=== PATIENT | female | born 1975 | race Two or more races ===

== ENCOUNTER 2024-04-10 11:18 | Emergency (ER) | payer MEDICAID, SELFPAY ==
[2024-04-10 11:27] VITALS: BP 182/117; PULSE 80; RESP 18; TEMP 36.9; O2SAT 100; BMI 36.5
--- NOTE | 2024-04-10 11:32 | XR_ITS ---
Examination: CT abdomen and pelvis without contrast. Coronal 3-D reconstructions. Sagittal 2-D reconstructions. Date and time of exam:April 10 2024 to 32 hours Comparison March 12, 2008 INDICATIONS: Onset generalized abdominal pain today CTDI: vol (mGy): 13.4 DLP: (mGycm): 749 Technique: Axial images of the abdomen have been obtained, 3 mm slice thickness Intravenous contrast material has not been administered. Low dose protocols were performed. One or more of the following dose reduction techniques were used; automated exposure control, adjustment of the mA and/or KV according to patient size, use of iterative reconstruction technique. Findings: No focal liver or splenic lesion Gastric sutures Absent gallbladder No pancreatic or adrenal mass No renal or ureteral calculi, no hydronephrosis No pericecal inflammatory change No bowel obstruction or diverticulitis Anteverted uterus No adnexal mass Urinary bladder intact Osseous structures intact IMPRESSION: No renal or ureteral calculi, no hydronephrosis No CT findings of appendicitis bowel obstruction or diverticulitis
--- NOTE | 2024-04-10 11:32 | EDRME_ITS ---
Rapid Medical Screening Exam [facility] [place] Arrival date/time: 04/10/24 11:18 48-year-old female with a history of a gastric sleeve, cholecystectomy and hypertension presents to the emergency room with a chief complaint of 8 out of 10 epigastric pain and tenderness. Patient states she has had nausea and vomiting x 2 days. Patient states that she is on the Wegovy medication for diabetes and recently started taking it again and a higher dose after being off of it for months. I have greeted and performed a focused initial assessment of this patient. A comprehensive ED assessment and evaluation of the patient, analysis of all test results, and completion of the medical decision making process will be conducted by additional ED providers. Chief Complaint: Nausea/Vomiting/Diarrhea Vital signs: Vital Signs Temperature 98.4 F 04/10/24 11:27 Pulse Rate 80 04/10/24 11:27 Respiratory Rate 18 04/10/24 11:27 Blood Pressure 182/117 H 04/10/24 11:27 Pulse Oximetry (%) 100 04/10/24 11:27 Oxygen Delivery Method Room Air 04/10/24 11:27 Vital signs reviewed by provider: Yes
[2024-04-10 11:56] LABS: Collection Type, Urine Clean Catch
[2024-04-10 12:12] LABS: HCG Qualitative,Urine Negative
[2024-04-10 12:13] LABS: Amorphous Crystals,Urine Present (Absent); Bilirubin,Urine Negative (Negative); Blood,Urine Negative (Negative); Color,Urine Lt-Yellow (Lt Yel-Yel); Glucose, Urine Negative (Negative); Ketones,Urine 1+ (Negative); Leukocyte Esterase,Urine Negative (Negative); Nitrite,Urine Negative (Negative); PH,Urine 7.5 (5.0-7.0); Protein,Urine 2+ (Neg - Trace); RBC,Urine 3 /hpf (0-3); Specific Gravity,Urine 1.022 (1.001-1.035); Squamous Epithelial Cell,Urine 1 /hpf (0-5); Urobilinogen,Urine Negative mg/dL (0.0-1.0); WBC,Urine 2 /hpf (0-5)
[2024-04-10 12:18] LABS: Clarity,Urine Hazy (Clear/Hazy)
[2024-04-10 12:29] LABS: Basophils % (Auto) 0 % (0-2.5); Eosinophils % (Auto) 0 % (0-10); Hematocrit 39.1 % (36.0-46.0); Hemoglobin 12.5 g/dL (12.0-16.0); Immature Granulocytes % (Auto) 1 % (0-0); Immature Granulocytes Auto 0.05 Thou/mm3 (0.00-0.00); Lymphocytes # (Auto) 1.2 Thou/mm3 (1.0-4.8); Lymphocytes % (Auto) 13 % (10-50); Mean Corpuscular Hemoglobin 24.8 pg (25.0-35.0); Mean Corpuscular Volume 78 fL (80-100); Monocytes # (Auto) 0.4 Thou/mm3 (0.0-0.8); Monocytes % (Auto) 4 % (0-12); Neutrophils # (Auto) 7.7 Thou/mm3 (1.8-7.7); Neutrophils % (Auto) 82 % (37-80); Nucleated Red Blood Cell % 0 /100 WBC (0); Platelet Count 216 Thou/mm3 (140-440); RDW Standard Deviation 47.3 fL (36.4-46.3); Red Blood Count 5.04 Miln/mm3 (4.00-5.20); White Blood Count 9.3 Thou/mm3 (3.6-11.0)
[2024-04-10] MEDS: METOCLOPRAMIDE LIQD 10 MG/10 ML UDC PO (12:29)
[2024-04-10 12:48] LABS: Alanine Aminotransferase 31 U/L (10-49); Albumin, Serum 5.5 gm/dL (3.5-5.0); Albumin/Globulin Ratio 1.8 (1.2-2.2); Alkaline Phosphatase 99 U/L (46-116); Anion Gap 10 (7-16); Aspartate Amino Transferase 28 U/L (0-34); BUN/Creatinine Ratio 19 Ratio (12-20); Bilirubin,Total 0.6 mg/dL (0.3-1.2); Blood Urea Nitrogen 13 mg/dL (9-23); Calcium 10.2 mg/dL (8.3-10.6); Calcium (Corrected) 10.2 mg/dL (8.5-10.1); Carbon Dioxide 26.6 mMol/L (20.0-31.0); Chloride 100 mMol/L (98-107); Creatinine (Component) 0.7 mg/dL (0.6-1.3); Glucose 118 mg/dL (74-106); Lipase 34 U/L (12-53); Osmolality,Calculated 274 (275-295); Potassium 4.2 mMol/L (3.4-5.1); Sodium 137 mMol/L (136-145); Total Protein 8.5 gm/dL (5.7-8.2); eGFR > 60 See Note
[2024-04-10 12:58] VITALS: BP 182/117; PULSE 80
[2024-04-10] MEDS: cloNIDine HCL 0.1 MG TABLET PO (12:58)
[2024-04-10] MEDS: MG HYD/AL HYD/SIME (Maalox Reg) SUSP 30 ML UDC PO (12:59)
--- NOTE | 2024-04-10 13:42 | EDNOTE_ITS ---
Nausea/Vomit./Diarrhea-RME/HPI General Chief complaint: Nausea/Vomiting/Diarrhea Stated complaint: n/v/d, i think i'm having reac. to wt loss shot Arrival date/time: 04/10/24 11:18 RME / HPI RME / HPI Narrative: 04/10/24 11:18 48-year-old female with a history of a gastric sleeve, cholecystectomy and hypertension presents to the emergency room with a chief complaint of 8 out of 10 epigastric pain and tenderness. Patient states she has had nausea and vomiting x 2 days. Patient states that she is on the Wegovy medication for diabetes and recently started taking it again and a higher dose after being off of it for months. I have greeted and performed a focused initial assessment of this patient. A comprehensive ED assessment and evaluation of the patient, analysis of all test results, and completion of the medical decision making process will be conducted by additional ED providers. This section includes all my notes and documentations, including HPI, PE, and ED course.? Ayan Oreilly MD HPI: 48-year-old female here with 12 to 24-hour history of vomiting and diarrhea and abdominal pain. No fever. No urinary symptoms. No other complaints. ROS: All negative except as documented in HPI. Physical Exam: General:? Alert and oriented.? No acute distress when remaining still.?? Eyes:? Conjunctivae and lids clear.? ENT:? No nasal congestion.? Neck:? Supple.? Heart:? RRR.? Lungs:? No respiratory distress.? Good air movement.? No rhonchi, wheezing, rales.?? Abdomen:? Soft and nontender.?? Legs:? No clubbing, cyanosis, edema.? Skin:? Warm and dry.?? Neuro:? Alert and oriented X 3.?? I reviewed all diagnostic test results. My review of the abdominal CT report is?no acute findings. Blood tests and urine tests?unremarkable. At this point, diagnoses include?gastroenteritis. Recommended supportive care. Based on my best medical judgment, made decision no further evaluation or treatment indicated at this time.? Patient understands and agrees to the discharge instructions customized and printed, see below. Discharge Instructions from Dr. Oreilly: 1. After evaluation, you have stomach flu.? See attached handout on gastroenteritis. 2. This is caused by virus germs.? And we do not have good medications to kill the virus germs.? But your immune system will fight it off. 3. Your job is to stay hydrated. ?Reglan for nausea/vomiting.? Increase oral fluid and maintain clear urine.? If dark or yellow, increase oral fluid. 4. Do not take any medications to stop your diarrhea.? But try to replenish the fluid and electrolytes you are losing. 5. Some good choices are water (but not only water because it will cause electrolyte abnormalities), sports drinks like Gatorade (with less sugar content), coconut water, chicken stock, and other fluid with electrolytes (like Pedialyte). 6. See your private doctor on 04/13/2024 if not completely better. 7. Seek immediate medical care with worsening or with any concerns. Ayan Oreilly MD Related Data Home Medications ?Medication ?Instructions ?Recorded ?Confirmed Hydrocodone/Acetaminophen (NORCO 1 tab PO Q4-6HRPRN PRN PAIN #0 tabs 03/14/13 10/325) Tramadol Hcl 1 tab PO PRN PAIN ##0 03/14/13 carisoprodol 350 mg tablet 1 tab PO [id number] PRN PAIN ##0 03/14/13 clonazepam 1 mg tablet 1 tab PO BID ##0 03/14/13 omeprazole 40 mg capsule,delayed 40 mg PO QDAY #0 mg 03/14/13 release (Prilosec) Previous Rx's ?Medication ?Instructions ?Recorded Codeine/Promethazine Hcl Syrup 2 tsp PO QIDPRN PRN cough ##180 03/14/13 (Phenergan w/Codeine Syrup) xanax 0.25mg 1 tab PO tid/prn anxiety #10 tabs 07/07/14 bacitracin 500 unit/gram topical 1 applicatio topical Q8H #30 grams 12/16/17 ointment clindamycin HCl 300 mg capsule 300 mg PO TID #15 caps 12/16/17 metoclopramide HCl 10 mg tablet 10 mg PO Q6H PRN nausea and 04/10/24 (Reglan) vomiting #20 tabs Allergies Allergy/AdvReac Type Severity Reaction Status Date / Time codeine Allergy Severe Hives Verified 04/10/24 11:22 ibuprofen Allergy Severe Hives Verified 04/10/24 11:22 sertraline [From Zoloft] Allergy Severe Hives Verified 04/10/24 11:22 topiramate Allergy Severe HIVE Verified 04/10/24 11:22 ondansetron [From Zofran] Allergy Intermediate Rash Verified 04/10/24 12:18 TRAZADONE Allergy Intermediate Hives Uncoded 04/10/24 11:22 Review of Systems Review of Systems Systems Reviewed: All systems reviewed, normal except as documented Past Medical History Past Medical History CARDIAC: Negative Congestive Heart Failure RESPIRATORY: Negative Chronic Obstructive Pulmonary Disease (COPD) GENITOURINARY: Negative Renal Disease ENDOCRINE: Negative Diabetes Mellitus Type 1 or Diabetes Mellitus Type 2 Social History SMOKING STATUS: Never smoker ED Exam Narrative Physical exam: As noted in HPI Course Quality Measures none Orders Category Date Time Status CT abdomen pelvis wo con Stat Exams 04/10/24 11:32 Completed CBC Stat Lab 04/10/24 11:52 Completed CMP [Comprehensive Metabolic Panel] Stat Lab 04/10/24 11:52 Completed HCG Qualitative,Urine Stat Lab 04/10/24 11:50 Completed Lipase Stat Lab 04/10/24 11:52 Completed UA [Urinalysis] Stat Lab 04/10/24 11:50 Completed Urine Culture Stat Lab 04/10/24 11:50 Received ACETAMINOPHEN w/COD 300-30 [Tylenol w/Cod #3] Med 04/10/24 12:23 Discontinued 2 tab PO X1 ONE Metoclopramide [Reglan] Med 04/10/24 12:23 Discontinued 10 mg PO X1 ONE Ondansetron Odt [Zofran Odt] Med 04/10/24 11:32 Discontinued 4 mg PO X1 ONE cloNIDine HCL [Catapres] Med 04/10/24 11:32 Discontinued 0.1 mg PO X1 ONE mg Hyd/Al Hyd/Marian Susp [Maalox Susp] Med 04/10/24 11:32 Discontinued 30 ml PO X1 ONE mg Hyd/Al Hyd/Marian Susp [Maalox Susp] Med 04/10/24 12:32 Discontinued 30 ml PO X1 ONE mg Hyd/Al Hyd/Marian Susp [Maalox Susp] Med 04/10/24 12:33 Discontinued 30 ml PO X1 ONE Vital Signs Vital signs: Vital Signs Temperature 98.4 F 04/10/24 11:27 Pulse Rate 80 04/10/24 11:27 Respiratory Rate 18 04/10/24 11:27 Blood Pressure 182/117 H 04/10/24 11:27 Pulse Oximetry (%) 100 04/10/24 11:27 Oxygen Delivery Method Room Air 04/10/24 11:27 Pulse ox is 100% on room air which is adequate. Nausea/Vomiting/Diarrhea Patient data External records reviewed:: [facility] previous records (I reviewed ED visit on 06/01/2018 ) Clinical information provided by:: patient Social determinants that could affect healthcare access:: none Patient has the following chronic illnesses:: None How is presenting disease/condition affected by chronic disease/condition?: no chronic disease Evaluation data The following diagnostics were reviewed and interpreted by me:: lab results and radiology exam(s) Lab and/or radiology exams considered but not ordered:: None Interpretation Summary: Gastroenteritis Medications / Prescriptions Medications / Prescriptions considered but not ordered:: None Medication administrations:: Medication Administration History Discontinued Medications Acetaminophen/Codeine Phosphate (Acetaminophen W/Cod 300-30 Tablet) 2 tab PO X1 ONE Stop: 04/10/24 12:24 Last Admin: 04/10/24 12:30 Dose: Not Given Documented By: QUIANA Non-Admin Reason: Patient Refused Al Hydrox/Mg Hydrox/Simethicone (Mg Hyd/Al Hyd/Marian (Maalox Reg) Susp 30 Ml Udc) 30 ml PO X1 ONE Stop: 04/10/24 11:33 Last Admin: 04/10/24 13:39 Dose: Not Given Documented By: OA Non-Admin Reason: Discontinued Al Hydrox/Mg Hydrox/Simethicone (Mg Hyd/Al Hyd/Marian (Maalox Reg) Susp 30 Ml Udc) 30 ml PO X1 ONE Stop: 04/10/24 12:33 Last Admin: 04/10/24 12:59 Dose: 30 ml Documented By: MP Al Hydrox/Mg Hydrox/Simethicone (Mg Hyd/Al Hyd/Marian (Maalox Reg) Susp 30 Ml Udc) 30 ml PO X1 ONE Stop: 04/10/24 12:34 Last Admin: 04/10/24 12:59 Dose: Not Given Documented By: MP Non-Admin Reason: Duplicate Medication on eMAR Clonidine (Clonidine Hcl 0.1 Mg Tablet) 0.1 mg PO X1 ONE Stop: 04/10/24 11:33 Last Admin: 04/10/24 12:58 Dose: 0.1 mg Documented By: DELORES Metoclopramide HCl (Metoclopramide Liqd 10 Mg/10 Ml Udc) 10 mg PO X1 ONE Stop: 04/10/24 12:24 Last Admin: 04/10/24 12:29 Dose: 10 mg Documented By: QUIANA Ondansetron HCl (Ondansetron Odt 4 Mg Tabrap) 4 mg PO X1 ONE; Protocol Stop: 04/10/24 11:33 Last Admin: 04/10/24 12:18 Dose: Not Given Documented By: QUIANA Non-Admin Reason: Patient Refused Reglan and Mylanta Consultations Consultation(s) initiated? (list below): No Diagnosis Nausea Differential Diagnosis: traveler's diarrhea, food poisoning, gastroenteritis, drug-induced nausea and vomiting and dehydration Most likely diagnosis given after review of the tests above:: Gastroenteritis Admission Indicated Admission indicated?: not indicated Explain why admission is indicated or not indicated:: Does not meet admission criteria Admission Request Was there a request for admission?: No Disposition Plan Disposition Plan: Discharge Discharge Attestation Discharge Attestation: The patient and all family members were given an opportunity to ask questions and understood the discharge instructions. Discharge instructions specifically effects, indications for sooner follow up or return to the emergency department, and the expected course of current diagnosis. Patient condition: Stable Discharge Plan Plan Patient Disposition: HOME (Self Care) Prescriptions/Referrals Prescriptions/Med Rec: New metoclopramide HCl [Reglan] 10 mg tablet 10 mg PO Q6H PRN (Reason: nausea and vomiting) Qty: 20 0RF No Action carisoprodol 350 MG tablet 1 tab PO [id number] PRN (Reason: PAIN) Qty: 0 clonazepam 1 MG tablet 1 tab PO BID Qty: 0 omeprazole [Prilosec] 40 MG capsule,delayed release(DR/EC) 40 mg PO QDAY Qty: 0 Patient Comments: TO SUPPRESS GASTRIC SECRETIONS Hydrocodone/Acetaminophen (NORCO 10/325) 1 TAB tablet 1 tab PO Q4-6HRPRN PRN (Reason: PAIN) Qty: 0 Tramadol Hcl 50 MG tablet 1 tab PO PRN (Reason: PAIN) Qty: 0 Codeine/Promethazine Hcl Syrup (Phenergan w/Codeine Syrup) 120 ML syrup 2 tsp PO QIDPRN PRN (Reason: cough) Qty: 180 0RF Rx Instructions: 5 ML = 10 MG CODEINE xanax 0.25mg 1 tab PO tid/prn anxiety Qty: 10 0RF clindamycin HCl 300 mg capsule 300 mg PO TID Qty: 15 0RF bacitracin 500 unit/gram ointment 1 applicatio TOPICAL Q8H Qty: 30 0RF Referrals: Precious Lancaster PA-C [Primary Care Provider] - In 1 week Problem List Clinical Impression: Stomach flu Patient/Caregiver Discharge Instructions Discharge Activity: activity as tolerated Education Materials: ED Gastroenteritis, Viral (Adult) Additional Instructions: Discharge Instructions from Dr. Oreilly: 1. After evaluation, you have stomach flu.? See attached handout on gastroenteritis. 2. This is caused by virus germs.? And we do not have good medications to kill the virus germs.? But your immune system will fight it off. 3. Your job is to stay hydrated. ?Reglan for nausea/vomiting.? Increase oral fluid and maintain clear urine.? If dark or yellow, increase oral fluid. 4. Do not take any medications to stop your diarrhea.? But try to replenish the fluid and electrolytes you are losing. 5. Some good choices are water (but not only water because it will cause electrolyte abnormalities), sports drinks like Gatorade (with less sugar content), coconut water, chicken stock, and other fluid with electrolytes (like Pedialyte). 6. See your private doctor on 04/13/2024 if not completely better. 7. Seek immediate medical care with worsening or with any concerns. Print Language: Finnish Stand Alone Forms: [place] Award Info., Work/School Release, Patient Portal Info Letter
== END 2024-04-10 14:52 | disposition home or self-care (01) ==
PROVIDERS: Nurse Practitioner Family; Emergency Provider Emergency Medicine; PCP Physician Assistant Medical
DX: A08.4 Viral intestinal infection, unspecified (principal); I10 Essential (primary) hypertension
CPT/HCPCS: 36415; 74176; 80053; 81001; 81025; 83690; 85025; 87086; 99284; A9270

== ENCOUNTER 2024-09-21 08:54 | Outpatient (AMB) | payer MEDICAID, SELFPAY ==
--- NOTE | 2024-09-21 09:06 | AMB.GYNCLNOT ---
Vital Signs 09/21/24 09:07 Height 1.55 m Height Method Stated Weight 90.775 kg Weight Measurement Method Standing Scale BMI 37.8 BP 125/86 H Blood Pressure Source Automatic Cuff Blood Pressure Location Left Upper Arm Position Sitting Respiration 18 Pulse 72 Pulse Source Monitor Temp 97.2 F Temp Source Oral Pulse Oximetry (%) 98 Oxygen Delivery Method Room Air Allergies/Home Meds Allergies & Medications Allergies codeine Allergy (Severe, Verified 09/21/24 09:08) Hives ibuprofen Allergy (Severe, Verified 09/21/24 09:08) Hives sertraline (From Zoloft) Allergy (Severe, Verified 09/21/24 09:08) Hives topiramate Allergy (Severe, Verified 09/21/24 09:08) HIVE ondansetron (From Zofran) Allergy (Intermediate, Verified 09/21/24 09:08) Rash TRAZADONE Allergy (Intermediate, Uncoded 09/21/24 09:08) Hives Medication Reconciliation Codeine/Promethazine Hcl Syrup (Phenergan w/Codeine Syrup) 2 tsp PO QIDPRN PRN cough ##180 03/14/13 [Rx Confirmed 09/21/24] Hydrocodone/Acetaminophen (NORCO 10/325) 1 tab PO Q4-6HRPRN PRN PAIN #0 tabs 03/14/13 [History Confirmed 09/21/24] Tramadol Hcl 1 tab PO PRN PAIN ##0 03/14/13 [History Confirmed 09/21/24] carisoprodol 350 mg tablet 1 tab PO [id number] PRN PAIN ##0 03/14/13 [History Confirmed 09/21/24] clonazepam 1 mg tablet 1 tab PO BID ##0 03/14/13 [History Confirmed 09/21/24] omeprazole 40 mg capsule,delayed release (Prilosec) 40 mg PO QDAY #0 mg 03/14/13 [History Confirmed 09/21/24] xanax 0.25mg 1 tab PO tid/prn anxiety #10 tabs 07/07/14 [Rx Confirmed 09/21/24] bacitracin 500 unit/gram topical ointment 1 applicatio topical Q8H #30 grams 12/16/17 [Rx Confirmed 09/21/24] clindamycin HCl 300 mg capsule 300 mg PO TID #15 caps 12/16/17 [Rx Confirmed 09/21/24] metoclopramide HCl 10 mg tablet (Reglan) 10 mg PO Q6H PRN nausea and vomiting #20 tabs 04/10/24 [Rx Confirmed 09/21/24] Intake Visit Data Collection New Patient or Established: Established Patient (seen at [facility] [place] within 3 years) Reason for Visit:: HYSTERECTOMY CONSULT Seen by Clinical Staff ONLY (RN/MA): No Quarry Boss Required: No Do You Feel Safe at Home: Yes Authorities Contacted: N/A PCP or OBGYN visit in last 3 months: Yes Date of Last PCP or OBGYN visit: 04/10/24 Hx Now: No Are you currently on any form of Control: No Last menstrual period: 04/04/24 Pain Present Currently: Yes Pain Scale Used: Perea-Kirby/Numerical Pain scale:: 0 Smoking Status Smoking Status: Never smoker Core Dropper history Core Dropper History Menstrual regularity: irregular Flow: heavy Monthly: No How many days does period last: 0 Age at menarche: 14 Menopausal: No Currently sexually active: No IMAGERY INTELLIGENCE: Past Medical History Past Medical History: No Hx Renal Disease, No Hx Diabetes Mellitus Type 1 and No Hx Diabetes Mellitus Type 2 Questionnaires Covid-19 Vaccine Questionnaire Has patient been vacinated for Covid-19 Have you been vacinated for Covid-19: Yes PHQ-9 PHQ-2 Over the last 2 weeks, how often have you been bothered by any of the following problems? 1. Little interest or pleasure in doing things: not at all 2. Feeling down, depressed, or hopeless: not at all Total score: 0 PHQ-9 3. Trouble falling or staying asleep, or sleeping too much: Not at all 4. Feeling tired or having little energy: Not at all 5. Poor appetite or overeating: Not at all 6. Feeling bad about yourself - or that you are a failure or have let yourself or your family down: Not at all 7. Trouble concentrating on things, such as reading the newspaper or watching television: Not at all 8. Moving or speaking so slowly that other people could have noticed? - Or the opposite - being so fidgety or restless that you have been moving around a lot more than usual: not at all 9. Thoughts that you would be better off or of hurting yourself in some way: Not at all Total score: 0 If you checked off any problems, how difficult have these problems made it for you to do your work, take care of things at home, or get along with other people?: not difficult at all Source: Developed by Drs. Michael Ozuna, Shannan Wong, Filiberto Dawson and colleagues, with an educational paige from [employer]. Depression screen completed yes Social History Living Situation History Marital Status: Single Lives With: Family Housing: House Tobacco History Smoking Status: Never smoker Second Hand Smoke Exposure: No Alcohol History Alcohol Intake: Never Domestic Abuse History Do You Feel Safe at Home: Yes History of Present Illness HPI Narrative Chief Complaint Irregular menses, dysmenorrhea, pelvic pain, bleeding History of Present Illness Sonal Izaguirre is a 48-year-old perimenopausal female presenting with complaints of irregular menses, dysmenorrhea, pelvic pain, and bleeding. She has a history of type 2 diabetes mellitus, primary hypertension, migraine with aura, menorrhagia, and anemia. The patient has been experiencing irregular menstrual cycles and painful periods. A pelvic ultrasound revealed a 9 cm uterus with multiple fibroids, the largest measuring 4 cm and 2.7 cm, as well as a simple ovarian cyst. She has previously tried oral contraceptives to manage her symptoms. Due to the persistent nature of her condition, she was being worked up for a hysterectomy. As part of her treatment plan, Ms. Izaguirre has received six injections of Lupron (leuprolide for depot). She experienced increased bleeding after the second injection, but her condition has since stabilized. An endometrial biopsy (EMB) was performed, showing weakly proliferative endometrium, negative for hyperplasia and malignancy. Ms. Izaguirre reports a significant improvement in her overall health following a gastric sleeve procedure approximately 5 years ago. She lost about 160 pounds, which led to the resolution of her diabetes, hypertension, and cholesterol issues. However, she continues to manage thyroid problems. The patient's symptoms have been impacting her daily life, necessitating surgical intervention. She is currently planning to return to work on November 15 and is hoping to complete the surgery and recovery before that date. Obstetric History - GTPAL: G1 T1 L1 - history: - One previous resulting in a with bilateral tubal ligation (BTL) Medical History - Type 2 diabetes mellitus, resolved after gastric bypass - Primary hypertension, resolved after gastric bypass - Hypercholesterolemia, resolved after gastric bypass - Thyroid issues, ongoing - Migraine with aura - Menorrhagia - Anemia - Chronic hip pain Surgical History - Gastric sleeve surgery approximately 5 years ago, resulting in significant weight loss - with bilateral tubal ligation (BTL) - Gallbladder removal Medications and Supplements - Oral contraceptives - Tried in the past - Lupron (leuprolide for depot) - Received 6 shots - Increased bleeding after 2nd injection, but stable since then Social History - 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 Musculoskeletal: Positive for chronic hip pain. Laboratory, Imaging, and Diagnostic Test Results - Pelvic ultrasound: - 9 cm uterus - Multiple fibroids, largest measuring 4 cm and 2.7 cm - Simple ovarian cyst - EMB (Endometrial biopsy) (06/27/2024): - Weakly proliferative endometrium - Negative for hyperplasia and malignancy - Pap smear (2020): Normal - Mammogram (date not specified): Normal Review of Systems Review of Systems Systems Reviewed: All systems reviewed, normal except as documented Exam General General Appearance: alert, in no apparent distress and healthy appearing Head Head exam: atraumatic Neck Neck exam: Present normal inspection and trachea midline Chest Chest inspection: Present normal inspection and symmetric chest wall rise External exam: Present normal external exam; Absent tenderness Neuro Neurological exam: Present oriented X3 Psych Psychiatric exam: Present normal affect and normal mood Office Procedures OB Clinic LOC & Office Proc's Nursing/Assessment Patient Status: Established Patient OB Clinic Nursing Assessment: Medication Reconciliation, Update PMH in EMR and Vital Signs OB Clinic Coordination of Care: Complex Care/Chronic Disease 5 or more, Education Complex Pt/Fam, Consent,records obtained, informed consent, Lab and Imaging orders, Results/Orders obtained and Staff clarify orders Established Patient Charge Established Patient Point Assignment: 120 Established Patient Point Charge: EP Level 4 (120-155) Assessment & Plan Diagnosis / Problem List (1) Intramural leiomyoma of uterus: Status: Acute Plan Sonal Izaguirre, 48-year-old perimenopausal female with history of type 2 DM, hypertension, and migraine, presenting with irregular menses, dysmenorrhea, and multiple uterine fibroids. Uterine Fibroids with Irregular Menses and Dysmenorrhea Assessment: Patient has a 9 cm uterus with multiple fibroids, the largest being 4 cm and 2.7 cm, confirmed by pelvic ultrasound. She has been experiencing irregular menses and dysmenorrhea. Previous treatments include oral contraceptives and six doses of Lupron (leuprolide depot), with the last dose given on 08-24-2024. An endometrial biopsy (EMB) performed showed weakly proliferative endometrium, negative for hyperplasia and malignancy. The patient experienced increased bleeding after the second Lupron injection but has been stable since then. Given the persistence of symptoms and the size of the fibroids, surgical intervention is deemed necessary. Plan: - Proceed with total abdominal hysterectomy - Informed consent obtained: Discussed surgical approach (transverse incision similar to ), removal of uterus, and closure - Discussed post-operative hospital stay (2 nights) and recovery process - Submit for insurance authorization - Obtain medical clearances from relevant specialists due to patient's medical history - Schedule surgery aiming for completion before November 15, 2024 (patient's planned return to work date) - Post-operative instructions provided: - Catheter removal after first night - Ambulation and diet advancement as tolerated - Shower before discharge - At home: perform simple tasks - After 7 days: driving and light activities permitted - 3 weeks to 1 month: expected return to normal activities - Follow-up appointment to be scheduled before surgery for further details
[2024-09-21 09:07] VITALS: BP 125/86; PULSE 72; RESP 18; TEMP 36.2; O2SAT 98; BMI 37.8
== END 2024-09-21 09:32 | disposition home or self-care (01) ==
LOC: HODSOBC 08:54
PROVIDERS: PCP Physician Assistant Medical; Referring Provider Physician Assistant Medical; Supervising Provider Obstetrics & Gynecology; Visit Provider Obstetrics & Gynecology
DX: D25.1 Intramural leiomyoma of uterus (principal); Z98.84 Bariatric surgery status; Z98.51 Tubal ligation status; Z88.5 Allergy status to narcotic agent; Z88.6 Allergy status to analgesic agent; Z88.8 Allergy status to other drugs, medicaments and biological substances
CPT/HCPCS: 99214; G0463

== ENCOUNTER 2024-10-30 14:47 | Outpatient (AMB) | payer MEDICAID, SELFPAY ==
[2024-10-30 15:04] VITALS: BP 121/82; PULSE 65; RESP 18; TEMP 36.5; O2SAT 98; BMI 39.4
--- NOTE | 2024-10-30 15:04 | AMB.GYNCLNOT ---
Vital Signs 10/30/24 15:04 Height 1.55 m Height Method Stated Weight 94.801 kg Weight Measurement Method Standing Scale BMI 39.4 BP 121/82 Blood Pressure Source Automatic Cuff Blood Pressure Location Right Upper Arm Position Sitting Respiration 18 Pulse 65 Pulse Source Monitor Temp 97.7 F Temp Source Temporal Artery Scan Pulse Oximetry (%) 98 Oxygen Delivery Method Room Air Allergies/Home Meds Allergies & Medications Allergies codeine Allergy (Severe, Verified 11/28/24 10:22) Hives ibuprofen Allergy (Severe, Verified 11/28/24 10:22) Hives sertraline (From Zoloft) Allergy (Severe, Verified 11/28/24 10:22) Hives topiramate Allergy (Severe, Verified 11/28/24 10:22) HIVE ondansetron (From Zofran) Allergy (Intermediate, Verified 11/28/24 10:22) Rash trazodone Allergy (Intermediate, Verified 11/28/24 10:22) Hives Medication Reconciliation Hydrocodone/Acetaminophen (NORCO 10/325) 1 tab PO Q4-6HRPRN PRN PAIN #0 tabs 03/14/13 [History Confirmed 11/28/24] cyclobenzaprine 5 mg tablet 5 mg PO HS PRN pain 10/29/24 [History Confirmed 11/28/24] ferrous sulfate 325 mg (65 mg iron) tablet,delayed release 325 mg PO DAILY 10/29/24 [History Confirmed 11/28/24] levothyroxine 88 mcg capsule 88 mcg PO QDAY 10/29/24 [History Confirmed 11/28/24] Intake Visit Data Collection New Patient or Established: Established Patient (seen at [facility] within 3 years) Reason for Visit:: PREOP KARISHMA Seen by Clinical Staff ONLY (RN/MA): No Loss Prevention Research Engineer Required: No Do You Feel Safe at Home: Yes Authorities Contacted: N/A PCP or OBGYN visit in last 3 months: Yes Date of Last PCP or OBGYN visit: 10/29/24 Hx Now: No Are you currently on any form of Control: No Pain Present Currently: Yes Pain Location: Back, Neck and Shoulder Pain Scale Used: Perea-Kirby/Numerical Pain scale:: 7 Smoking Status Smoking Status: Never smoker Stay Cutter history Stay Cutter History Menstrual regularity: regular Flow: heavy Monthly: Yes How many days does period last: 7 Age at menarche: 14 Currently sexually active: Yes 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 1. Little interest or pleasure in doing things: not at all 2. Feeling down, depressed, or hopeless: not at all Total score: 0 PHQ-9 3. Trouble falling or staying asleep, or sleeping too much: Not at all 4. Feeling tired or having little energy: Not at all 5. Poor appetite or overeating: Not at all 6. Feeling bad about yourself - or that you are a failure or have let yourself or your family down: Not at all 7. Trouble concentrating on things, such as reading the newspaper or watching television: Not at all 8. Moving or speaking so slowly that other people could have noticed? - Or the opposite - being so fidgety or restless that you have been moving around a lot more than usual: not at all 9. Thoughts that you would be better off or of hurting yourself in some way: Not at all Total score: 0 If you checked off any problems, how difficult have these problems made it for you to do your work, take care of things at home, or get along with other people?: not difficult at all Source: Developed by Drs. Michael Ozuna, Shannan Wong, Filiberto Dawson and colleagues, with an educational paige from [employer]. Depression screen completed yes Social History Living Situation History Marital Status: Unknown Lives With: Family Housing: House Tobacco History Smoking Status: Never smoker Second Hand Smoke Exposure: No Alcohol History Alcohol Intake: Never Domestic Abuse History Do You Feel Safe at Home: Yes History of Present Illness HPI Narrative Patient reports experiencing menopausal symptoms, including hot flashes, despite discontinuing Lupron treatment. She describes hot flashes in various parts of her body, including her head, occurring unexpectedly even in air-conditioned environments, causing sudden sweating and moisture on her scalp. Patient expresses some uncertainty about the extent of the surgery, initially believing it would be a partial hysterectomy but now understanding it will likely be a total hysterectomy with removal of ovaries. She inquires about post-operative hormone replacement therapy, recognizing she may need it due to her ongoing menopausal symptoms. She is a female patient presenting for a pre-operative visit two days before her scheduled hysterectomy. She has completed pre-operative preparations, including blood work and receiving special soap for pre-surgical cleansing. Regarding her work status, patient has been off work for the summer due to schooling and was originally scheduled to return on November 14. However, given the upcoming surgery, she is concerned about her ability to return to work as planned and is seeking an extension of her leave. Patient has discontinued Lupron, but symptoms persist. 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 Exam General General Appearance: alert, in no apparent distress and healthy appearing Head Head exam: atraumatic Neck Neck exam: Present normal inspection and trachea midline Chest Chest inspection: Present normal inspection and symmetric chest wall rise External exam: Present normal external exam; Absent tenderness Neuro Neurological exam: Present oriented X3 Psych Psychiatric exam: Present normal affect and normal mood Office Procedures OB Clinic LOC & Office Proc's Nursing/Assessment Patient Status: Established Patient OB Clinic Nursing Assessment: Medication Reconciliation, Update PMH in EMR and Vital Signs OB Clinic Coordination of Care: Complex Care and Chronic Disease 1-5, Consent,records obtained, informed consent, Education Simp Pt/Fam, 4+ Authorizations needed and Staff clarify orders Established Patient Charge Established Patient Point Assignment: 110 Established Patient Point Charge: EP Level 3 (80-115) Assessment & Plan Diagnosis / Problem List (1) Other acute postprocedural pain: Status: Acute (2) Intramural leiomyoma of uterus: Status: Acute Plan Total Hysterectomy with Bilateral Salpingo-oophorectomy Plan: - Perform total hysterectomy with bilateral salpingo-oophorectomy in 2 days. - Anticipate 1-2 night hospital stay, depending on pain control and recovery. - Remove urinary catheter 6 hours post-surgery. - Provide abdominal binder for post-operative use. - Instruct on post-operative activity restrictions: - First 5-7 days: Mostly bed rest, with allowance for showering and limited sitting activities. - After 7 days: Walking, driving, and light errands permitted. - After 3 weeks: Near-normal activity with some restrictions. - After 1 month: Full clearance anticipated. - Consider hormone replacement therapy post-operatively based on symptom persistence. - Complete work absence forms for patient, recommending time off until november. - Follow up post-operatively to assess recovery and need for hormone replacement therapy.
== END 2024-10-30 15:10 | disposition home or self-care (01) ==
LOC: HODSOBC 14:47
PROVIDERS: PCP Physician Assistant Medical; Referring Provider Physician Assistant Medical; Supervising Provider Obstetrics & Gynecology; Visit Provider Obstetrics & Gynecology
DX: G89.18 Other acute postprocedural pain (principal); D25.1 Intramural leiomyoma of uterus; Z90.710 Acquired absence of both cervix and uterus; Z90.79 Acquired absence of other genital organ(s); Z90.722 Acquired absence of ovaries, bilateral
CPT/HCPCS: 99213; G0463

== ENCOUNTER 2024-11-01 05:40 | Inpatient (IN) | payer MEDICAID, SELFPAY ==
[2024-10-29 09:53] VITALS: BMI 40.0
[2024-10-29 10:37] LABS: Basophils # (Auto) 0.0 Thou/mm3 (0.0-0.2); Basophils % (Auto) 1 % (0-2.5); Eosinophils # (Auto) 0.1 Thou/mm3 (0.0-0.5); Eosinophils % (Auto) 3 % (0-10); Hematocrit 35.4 % (36.0-46.0); Hemoglobin 11.3 g/dL (12.0-16.0); Immature Granulocytes Auto 0.01 Thou/mm3 (0.00-0.00); Lymphocytes # (Auto) 1.9 Thou/mm3 (1.0-4.8); Lymphocytes % (Auto) 43 % (10-50); Mean Corpuscular HGB Conc 31.9 g/dl (31.0-37.0); Mean Corpuscular Hemoglobin 26.4 pg (25.0-35.0); Mean Corpuscular Volume 83 fL (80-100); Monocytes # (Auto) 0.3 Thou/mm3 (0.0-0.8); Monocytes % (Auto) 7 % (0-12); Neutrophils # (Auto) 2.0 Thou/mm3 (1.8-7.7); Neutrophils % (Auto) 46 % (37-80); Nucleated Red Blood Cell # 0.00 Thou/mm3 (0.00-0.00); Nucleated Red Blood Cell % 0 /100 WBC (0); Platelet Count 178 Thou/mm3 (140-440); RDW Standard Deviation 46.1 fL (36.4-46.3); Red Blood Count 4.28 Miln/mm3 (4.00-5.20); White Blood Count 4.3 Thou/mm3 (3.6-11.0)
[2024-10-29 10:58] LABS: Alanine Aminotransferase 74 U/L (10-49); Albumin, Serum 4.8 gm/dL (3.5-5.0); Albumin/Globulin Ratio 1.8 (1.2-2.2); Alkaline Phosphatase 108 U/L (46-116); Anion Gap 9 (7-16); Aspartate Amino Transferase 64 U/L (0-34); BUN/Creatinine Ratio 23 Ratio (12-20); Bilirubin,Total 0.5 mg/dL (0.3-1.2); Blood Urea Nitrogen 14 mg/dL (9-23); Calcium 10.0 mg/dL (8.3-10.6); Calcium (Corrected) 10.0 mg/dL (8.5-10.1); Carbon Dioxide 28.4 mMol/L (20.0-31.0); Chloride 105 mMol/L (98-107); Creatinine (Component) 0.6 mg/dL (0.6-1.3); Estimated Creatinine Clearance 116.7 mL/min (>60); Globulin 2.6 gm/dL (2.3-3.5); Glucose 91 mg/dL (74-106); Osmolality,Calculated 283 (275-295); Potassium 4.6 mMol/L (3.4-5.1); Sodium 142 mMol/L (136-145); Total Protein 7.4 gm/dL (5.7-8.2); eGFR > 60 See Note
[2024-10-29 11:56] LABS: HCG,Qualitative Serum Negative
[2024-11-01] VITALS (32 sets, daily range): BP systolic 70–153; BP diastolic 43–101; PULSE 62–80; RESP 12–25; TEMP 36.1–37.2; O2SAT 94–100; BMI 40.8
--- NOTE | 2024-11-01 09:34 | ESOP_ITS ---
Operative Note - [facility] Procedure Date of procedure: 11/01/24 Procedure Performed: Total abdominal hysterectomy with bilateral salpingectomy Indication: Abnormal uterine bleeding with severe dysmenorrhea Leiomyoma of uterus Multiple previous sections Post-Op diagnosis: Same as preop, atrophic uterus due to Depo-Lupron Anesthesia type: General Procedure description: Informed consent was obtained and the patient was taken to the operating room.? Identity was confirmed by double identifiers and she was placed on the operating table.? General anesthesia was administered and the patient was secured and positioned in the supine position.? The abdomen and perineum were prepped in the usual sterile fashion, a Allen catheter was placed to continuous drainage and sterile drapes were applied.? A timeout procedure was completed. A Pfannenstiel skin incision was made with a scalpel and incision was carried down through the subcutaneous fat up to the rectus fascia.? Rectus fascia was incised on either side of the midline and the fascial incisions were extended bilaterally using Mg scissors.? The rectus fascia was now grasped using a pair of Saira's clamps and dissected off the anterior surface of the rectus muscle.? The same procedure was repeated on the inferior aspect.? The rectus bellies were now in the midline and the peritoneum was identified and entered bluntly.? The peritoneal opening was gently stretched to create adequate access into the pelvic cavity.? Emiliano O-ring retractor was placed and the bowel was packed out of the operative field.? The uterus was grasped using a double-tooth tenaculum.? Significant amount of bladder adhesion was noted and about 40 minutes of dissection was performed to divide the bladder adhesion to gain access to the uterovesical peritoneum.? The uterus was placed under traction and dissection was started on the right side.? The utero-ovarian ligament was was divided.? The fallopian tube was dissected off separately.? The round ligament was now divided and the anterior and posterior leaves of the broad ligament was .? The anterior leaf was dissected up to the bladder reflection to create the bladder flap.? The posterior leaf was dissected down all the way to the uterosacral ligament.? Subsequent bites were taken down the size of the uterus until the uterine artery was skeletonized, occluded and divided and the cervix was reached.? The same procedure was repeated on the contralateral side.? Once the level of the cervix was reached a pair of Kiki clamps were placed across the cervix and the uterus was amputated and handed over for pathological exam.? After amputation of the uterus significant amount of bleeding was noted from the entire circumference of the vaginal cuff. Additional bleeding was noted from the left uterine artery stump which appeared to be retracting. All bleeding points were now grasped using Boris or Saira clamps and [id number] stitches were applied using 0 Vicryl pop-off's. Once hemostasis appeared to be satisfactory the vaginal cuff was closed using 0 Vicryl in a running fashion. All instruments were now withdrawn.? The bowel packing was removed.? The Emiliano retractor was removed.?The peritoneum was now closed using 2-0 Vicryl, the rectus muscles were reapproximated using 3-0 Vicryl.? The rectus fascia was closed using 0 Vicryl in a running fashion.? The subcutaneous layer was copiously irrigated.? The subcutaneous fat was closed using 3 0 plain and the skin was closed using INSORB joann.? The skin was thoroughly cleaned and a sterile pressure dressing was applied.? The patient was undraped, general anesthesia was reversed and she was transferred to the recovery room in a stable and awake condition. Patient tolerated the entire procedure well.? No acute complications were encountered during the procedure.? All instrument, sponge and lap counts were correct x2 Estimated blood loss (ml): 300 Complications: none Surgical staff Operation Date: 11/01/24 07:30 Case Staff Anesthesiologist: Jt Hernández RN First Assistant: Mandi Clinton Diagnosis Discharge Diagnosis (1) Intramural leiomyoma of uterus: Status: Acute Problem List Completed Was Problem List Reviewed/Reconciled?: Yes
--- NOTE | 2024-11-01 10:02 | SUR.PHASEI ---
pt received from OR in recovery bay 5. pt asleep but responds to voice, breathing unlabored on 8l oxymask. v/s stable. pt dressing to abd and peripad cdi. abd binder in place. report received from Olga TA and Dr. Hernández.
[2024-11-01] MEDS: HYDROmorphone 1 MG/ML PCA SYRINGE 30ML 30 MG IV (10:19)
[2024-11-01] MEDS: SODIUM CHLORIDE 0.9% 1000 ML 1,000 ML 200 ML IV ×2 (10:23→17:55)
--- NOTE | 2024-11-01 10:41 | SUR.PHASEI ---
Florencia Delgado RN assisted in checking pt peripad, peripad cdi.
[2024-11-01 10:56] LABS: Basophils # (Auto) 0.0 Thou/mm3 (0.0-0.2); Basophils % (Auto) 0 % (0-2.5); Eosinophils # (Auto) 0.0 Thou/mm3 (0.0-0.5); Eosinophils % (Auto) 0 % (0-10); Hematocrit 30.0 % (36.0-46.0); Hemoglobin 9.5 g/dL (12.0-16.0); Immature Granulocytes Auto 0.05 Thou/mm3 (0.00-0.00); Lymphocytes # (Auto) 2.0 Thou/mm3 (1.0-4.8); Lymphocytes % (Auto) 13 % (10-50); Mean Corpuscular HGB Conc 31.7 g/dl (31.0-37.0); Mean Corpuscular Hemoglobin 26.0 pg (25.0-35.0); Mean Corpuscular Volume 82 fL (80-100); Monocytes # (Auto) 0.3 Thou/mm3 (0.0-0.8); Monocytes % (Auto) 2 % (0-12); Neutrophils # (Auto) 12.8 Thou/mm3 (1.8-7.7); Neutrophils % (Auto) 84 % (37-80); Nucleated Red Blood Cell # 0.00 Thou/mm3 (0.00-0.00); Nucleated Red Blood Cell % 0 /100 WBC (0); Platelet Count 171 Thou/mm3 (140-440); RDW Standard Deviation 46.0 fL (36.4-46.3); Red Blood Count 3.65 Miln/mm3 (4.00-5.20); White Blood Count 15.2 Thou/mm3 (3.6-11.0)
--- NOTE | 2024-11-01 12:20 | SUR.PHASEII ---
11:45 pts b/p low, pt states I feel like I'm on my period . 11:47 pts peripad rechecked with Florencia Cobb RN. in room, heavy bleeding noted. 11:[address] Pablo and informed him of pts heavy bleeding. Dr. Pablo stated he would come to assess. 11:56 Dr. Pablo at bedside placing vaginal packing. 12:05 Stephanie RN, Florencia Cobb Rn at bedside assisting with bedding/gown change. 12:[address] Pablo pt will go back into OR. 12:18 an additional iv placed for blood transfusion.
--- NOTE | 2024-11-01 12:50 | SUR.PHASEI ---
Pt. returning to surgery. Olga TA and Kristine TA transferring pt. via bed.
--- NOTE | 2024-11-01 14:41 | PD.GYNPROC ---
Operative Note - ACQUISITION ADVISOR Procedure Date of procedure: 11/01/24 Procedure Performed: Repair of vaginal laceration Exploratory laparotomy with additional hemostatic intervention Indication: Large amount of vaginal bleeding in PACU 1 hour status post total abdominal hysterectomy Anesthesia type: General Procedure description: Informed consent was obtained the patient was taken to the operating room. Identity was once again confirmed using double identifiers. General anesthesia was administered. Patient was positioned in the dorsal lithotomy position on yellowfin stereopsis. The abdomen as well as the perineum were prepped in the usual sterile fashion. Sterile drapes were applied. Attention was first turned to the vaginal aspect. A self-retaining speculum was placed and bleeding was noted from multiple points on the vaginal mucosal edge at the vaginal cuff. 0 Vicryl was used close the raw edge of the vaginal cuff in a running locked fashion. When the left end of the cuff was approached arterial pumper was noted and that was also compressed using a [id number] stitch using 0 Vicryl. Attention was now turned to the patient's abdomen. The dressing was removed and joann were cut and the laparotomy was reopened through all the layers. Patient was placed in Trendelenburg and bowel was packed out of the operating field. The vaginal cuff was inspected and there were also multiple points of hemorrhage noted from both the left and of the cuff as well as the bladder surface. Additional stitches were applied using a combination of 0 Vicryl, 2-0 chromic and 2-0 Vicryl. Ultimately hemostasis was noted to be satisfactory. Surgicel snow was placed on the vaginal cuff for additional hemostasis. All instruments were now removed. The rectus muscle and peritoneum was reapproximated. The rectus fascia was now repaired using 1-0 PDS in a running fashion. The subcutaneous layer was reapproximated using 3-0 plain gut. The skin was closed using INSORB joann. The skin was thoroughly cleaned, a Dermabond Prineo dressing was placed. Abdominal binder was placed for additional compression. General anesthesia was now reversed and the patient was taken to the recovery room in a stable and awake condition. Patient tolerated the entire procedure well. No complications were encountered. All instrument, sponge and lap counts were correct x 2. Estimated blood loss (ml): 50 Complications: none Surgical staff Operation Date: 11/01/24 13:00 Case Staff Anesthesiologist: Jt Hernández RN First Assistant: Mandi Clinton Diagnosis Discharge Diagnosis (1) Intramural leiomyoma of uterus: Status: Acute Problem List Completed Was Problem List Reviewed/Reconciled?: Yes
--- NOTE | 2024-11-01 14:45 | SUR.PHASEI ---
1445 Patient arrived to recovery resting comfortably in bed, on oxygen 10L via oxy mask, drowsy and able to arouse with verbal prompting, breathing unlabored, vital signs stable, denies pain, dresssing intact to sugeyen; julio dove, abd, medipore tape, abdominal binder, no bleeding noted, to vaginal area; kerlix roll vaginal packing and peripad, no bleeding noted, urinary catheter 16F in place with leg secure, draining to gravity, rreport received from Dr. Hernández and Olga TA
--- NOTE | 2024-11-01 15:18 | SUR.PHASEI ---
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
--- NOTE | 2024-11-01 15:58 | SUR.PHASEI ---
1553 Report given to Froylan RN, patient meets discharge criteria from recovery, awake and talking with staff, breathing unlabored, vital signs stable, dressing intact; no bleeding noted, patient controlled with BRAKE OPERATOR HEAVY DUTY, denies nausea, urinary catheter in place; draining to gravity. 1558 Patient transported via bed to 365 without. patients daughter and mother accompanied, Froylan promptly arrived in patients room, patient resting comfortably in bed with call light in reach when this machine sign writer left patients room.
[2024-11-01] MEDS: PIPER/TAZO INJ 4.5 GM in SODIUM CHLORIDE 0.9% (POP) 100 ML IV ×2 (16:29→21:47)
[2024-11-01] MEDS: TRANEXAMIC ACID 1,000 MG IVPB 1,000 MG/100 ML BAG 200 MG IV (17:44)
[2024-11-01] MEDS: ACETAMINOPHEN IVPB 1,000 MG/100 ML VIAL 250 MG IV ×2 (17:54→23:37)
[2024-11-01 19:53] LABS: Basophils # (Auto) 0.0 Thou/mm3 (0.0-0.2); Basophils % (Auto) 0 % (0-2.5); Eosinophils # (Auto) 0.0 Thou/mm3 (0.0-0.5); Eosinophils % (Auto) 0 % (0-10); Hematocrit 30.8 % (36.0-46.0); Hemoglobin 10.0 g/dL (12.0-16.0); Immature Granulocytes Auto 0.04 Thou/mm3 (0.00-0.00); Lymphocytes # (Auto) 0.5 Thou/mm3 (1.0-4.8); Lymphocytes % (Auto) 5 % (10-50); Mean Corpuscular HGB Conc 32.5 g/dl (31.0-37.0); Mean Corpuscular Hemoglobin 27.2 pg (25.0-35.0); Mean Corpuscular Volume 84 fL (80-100); Monocytes # (Auto) 0.5 Thou/mm3 (0.0-0.8); Monocytes % (Auto) 5 % (0-12); Neutrophils # (Auto) 9.0 Thou/mm3 (1.8-7.7); Neutrophils % (Auto) 89 % (37-80); Nucleated Red Blood Cell # 0.00 Thou/mm3 (0.00-0.00); Nucleated Red Blood Cell % 0 /100 WBC (0); Platelet Count 122 Thou/mm3 (140-440); RDW Standard Deviation 44.4 fL (36.4-46.3); Red Blood Count 3.67 Miln/mm3 (4.00-5.20); White Blood Count 10.0 Thou/mm3 (3.6-11.0)
[2024-11-02] VITALS (10 sets, daily range): BP systolic 91–121; BP diastolic 55–74; PULSE 61–99; RESP 15–97; TEMP 36.3–36.8; O2SAT 95–98
[2024-11-02] MEDS: TRANEXAMIC ACID 1,000 MG IVPB 1,000 MG/100 ML BAG 200 MG IV ×2 (00:44→08:51)
[2024-11-02] MEDS: PROMETHAZINE INJ 25 MG in SODIUM CHLORIDE 0.9% 50 ML IV ×2 (02:41→09:35)
[2024-11-02] MEDS: SODIUM CHLORIDE 0.9% 1000 ML 1,000 ML 200 ML IV (04:46)
[2024-11-02] MEDS: ACETAMINOPHEN IVPB 1,000 MG/100 ML VIAL 250 MG IV (05:16)
[2024-11-02] MEDS: LEVOTHYROXINE SODIUM 88 MCG TABLET PO (05:16)
[2024-11-02] MEDS: PIPER/TAZO INJ 4.5 GM in SODIUM CHLORIDE 0.9% (POP) 100 ML IV ×3 (05:17→21:09)
[2024-11-02 06:37] LABS: Basophils # (Auto) 0.0 Thou/mm3 (0.0-0.2); Basophils % (Auto) 0 % (0-2.5); Eosinophils # (Auto) 0.0 Thou/mm3 (0.0-0.5); Eosinophils % (Auto) 0 % (0-10); Hematocrit 26.7 % (36.0-46.0); Immature Granulocytes Auto 0.03 Thou/mm3 (0.00-0.00); Lymphocytes # (Auto) 1.4 Thou/mm3 (1.0-4.8); Lymphocytes % (Auto) 16 % (10-50); Mean Corpuscular HGB Conc 32.6 g/dl (31.0-37.0); Mean Corpuscular Hemoglobin 27.3 pg (25.0-35.0); Mean Corpuscular Volume 84 fL (80-100); Monocytes # (Auto) 0.7 Thou/mm3 (0.0-0.8); Monocytes % (Auto) 8 % (0-12); Neutrophils # (Auto) 6.6 Thou/mm3 (1.8-7.7); Neutrophils % (Auto) 76 % (37-80); Nucleated Red Blood Cell # 0.00 Thou/mm3 (0.00-0.00); Nucleated Red Blood Cell % 0 /100 WBC (0); RDW Standard Deviation 45.0 fL (36.4-46.3); Red Blood Count 3.19 Miln/mm3 (4.00-5.20); White Blood Count 8.7 Thou/mm3 (3.6-11.0)
[2024-11-02 06:41] LABS: Hemoglobin 8.7 g/dL (12.0-16.0)
[2024-11-02 06:42] LABS: Platelet Count 139 Thou/mm3 (140-440)
[2024-11-02 07:10] LABS: Anion Gap 10 (7-16); BUN/Creatinine Ratio 15 Ratio (12-20); Blood Urea Nitrogen 9 mg/dL (9-23); Calcium 8.1 mg/dL (8.3-10.6); Carbon Dioxide 24.0 mMol/L (20.0-31.0); Chloride 109 mMol/L (98-107); Creatinine (Component) 0.6 mg/dL (0.6-1.3); Estimated Creatinine Clearance 115.2 mL/min (>60); Glucose 119 mg/dL (74-106); Osmolality,Calculated 284 (275-295); Potassium 4.4 mMol/L (3.4-5.1); Sodium 143 mMol/L (136-145); eGFR > 60 See Note
[2024-11-02] MEDS: HYDROcodone/APAP 5/325 TABLET 2 TAB PO (07:51)
[2024-11-02] MEDS: KETOROLAC INJ 30 MG/ML VIAL IVP ×4 (07:53→23:28)
--- NOTE | 2024-11-02 07:57 | ESPR_ITS ---
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 Pain is adequately controlled on the current regimen. No incisional complaints, no chest pain, shortness of breath, breathing difficulties. Ambulating, tolerating p.o., Adequate UOP Exam Vital Signs Temp Pulse Resp BP Pulse Ox O2 Del Method O2 Flow Rate 97.5 F 81 16 102/71 98 Nasal Cannula 1 11/02/24 04:00 11/02/24 07:37 11/02/24 07:37 11/02/24 04:00 11/02/24 04:00 11/02/24 04:00 11/02/24 07:37 Constitutional Constitutional: no acute distress Routine HEENT Exam Head: Present normocephalic and atraumatic Eye: Present EOMI and PERRL ENT: Present mucous membranes moist Routine Neck Exam Neck: Present supple and trachea midline Routine Respiratory Exam Respiratory: Present chest non-tender, lungs clear, normal breath sounds and no resp distress Routine Cardiovascular Exam Cardiovascular: Present RRR Routine Abdominal Exam Abdominal: Present soft and normoactive bowel sounds Routine Extremities Exam Extremities: Present full ROM Routine Skin Exam Skin: Present intact and dry Routine Neurological Exam Neurological: Present alert, oriented X3 and CN II-XII intact Routine Psychiatric Exam Psychiatric: Present normal affect and normal thought process Urinary Catheter Management Cath placed during this visit: no MARKETING UNDERWRITER - PN: Obj Data Labs 11/02/24 04:56 11/02/24 04:56 Labs: Laboratory Results - last 24 hr 11/01/24 11/01/24 11/01/24 09:28 10:50 19:30 WBC 15.2 H D 10.0 D RBC 3.65 L 3.67 L Hgb 9.5 L 10.0 L Hct 30.0 L 30.8 L MCV 82 84 MCH 26.0 27.2 MCHC 31.7 32.5 RDW Std Deviation 46.0 44.4 Plt Count 171 122 L D Neut % (Auto) 84 H 89 H Lymph % (Auto) 13 5 L [place] % (Auto) 2 5 Eos % (Auto) 0 0 Baso % (Auto) 0 0 Neut # (Auto) 12.8 H 9.0 H Lymph # (Auto) 2.0 0.5 L [place] # (Auto) 0.3 0.5 Eos # (Auto) 0.0 0.0 Baso # (Auto) 0.0 0.0 Immature Gran # (Auto) 0.05 H 0.04 H Absolute Nucleated RBC 0.00 0.00 Immature Gran % 0 0 Nucleated RBC % 0 0 Sodium Potassium Chloride Carbon Dioxide Anion Gap BUN Creatinine Estim Creat Clear Calc eGFR BUN/Creatinine Ratio Glucose Calculated Osmolality Calcium Blood Type O Positive Antibody Screen NEGATIVE Crossmatch See Detail Blood Bank Wristband ID Yes Blood Bank Comment FFP Ready 11/02/24 04:56 WBC 8.7 RBC 3.19 L Hgb 8.7 L Hct 26.7 L MCV 84 MCH 27.3 MCHC 32.6 RDW Std Deviation 45.0 Plt Count 139 L Neut % (Auto) 76 Lymph % (Auto) 16 [place] % (Auto) 8 Eos % (Auto) 0 Baso % (Auto) 0 Neut # (Auto) 6.6 Lymph # (Auto) 1.4 [place] # (Auto) 0.7 Eos # (Auto) 0.0 Baso # (Auto) 0.0 Immature Gran # (Auto) 0.03 H Absolute Nucleated RBC 0.00 Immature Gran % 0 Nucleated RBC % 0 Sodium 143 Potassium 4.4 Chloride 109 H Carbon Dioxide 24.0 Anion Gap 10 BUN 9 Creatinine 0.6 Estim Creat Clear Calc 115.2 eGFR > 60 BUN/Creatinine Ratio 15 Glucose 119 H Calculated Osmolality 284 Calcium 8.1 L Blood Type Antibody Screen Crossmatch Blood Bank Wristband ID Blood Bank Comment MARKETING UNDERWRITER - A/P Assessment and plan (1) Intramural leiomyoma of uterus: Status: Acute Assessment and plan: POD#1 1. Continue routine post operative care 2. Transition to PO meds. 3. Encourage to ambulate 4. Anticipate discharge home tomorrow 5. Home care instructions reviewed Postoperative Procedures: Procedures Operation Date: 11/01/24 07:30 Actual Procedure Side Surgeon p Hysterectomy, Abdominal Evan Pablo MD Operation Date: 11/01/24 13:00 Actual Procedure Side Surgeon p Exam under anesthesia and Exploratory Laparotomy, Repair of vaginal laceration Evan Pablo MD Time Spent With Patient Time: Total time spent is greater than 50% in coordination of care (as documented) at patient's floor/unit and/or counseling patient: Time with patient: less than 15 minutes
[2024-11-02] MEDS: DOCUSATE SOD 100 MG CAPSULE PO (08:51)
[2024-11-02] MEDS: FERROUS SULF 325 MG TABLET PO (08:52)
[2024-11-02] MEDS: Milk Of Magnesia Susp 30 ML UDC PO (08:52)
--- NOTE | 2024-11-02 09:45 | PC.SS ---
Patient is alert/oriented. Patient was able to verify demographics. Patient was admitted for a hysterectomy. Patient states she resides with family. She is employed. She is independent with ADL's. Patient does not use any DME. Patient follows with [facility] and the last appt was on the . Patient pharmacy: [facility]. Patient states she was told she may d/c Tuesday. Alt medical decision maker: SisterUrmila, d/c plan: home transportation: family
--- NOTE | 2024-11-02 11:45 | PC.NURSE ---
Abdominal surgical dressing removed as ordered. Incision clean, dry and intact. No drainage noted.
[2024-11-02] MEDS: LACTULOSE SYRUP 20 GM/30 ML UDC 10 GM PO ×2 (14:57→21:09)
--- NOTE | 2024-11-02 17:06 | CHAP ---
Visit was made by the Spiritual Care Volunteer who prayed for them. (Volunteer was in the hospital from 15:10-17:06)
[2024-11-03] VITALS (15 sets, daily range): BP systolic 98–132; BP diastolic 63–90; PULSE 78–90; RESP 16–96; TEMP 36.5–37; O2SAT 93–98
[2024-11-03] MEDS: KETOROLAC INJ 30 MG/ML VIAL IVP ×2 (05:19→12:18)
[2024-11-03] MEDS: LEVOTHYROXINE SODIUM 88 MCG TABLET PO (05:19)
[2024-11-03] MEDS: PIPER/TAZO INJ 4.5 GM in SODIUM CHLORIDE 0.9% (POP) 100 ML IV ×2 (05:20→13:14)
[2024-11-03 06:04] LABS: Basophils # (Auto) 0.1 Thou/mm3 (0.0-0.2); Basophils % (Auto) 1 % (0-2.5); Eosinophils # (Auto) 0.1 Thou/mm3 (0.0-0.5); Eosinophils % (Auto) 1 % (0-10); Hematocrit 21.0 % (36.0-46.0); Immature Granulocytes Auto 0.02 Thou/mm3 (0.00-0.00); Lymphocytes # (Auto) 1.8 Thou/mm3 (1.0-4.8); Lymphocytes % (Auto) 23 % (10-50); Mean Corpuscular HGB Conc 32.4 g/dl (31.0-37.0); Mean Corpuscular Hemoglobin 27.2 pg (25.0-35.0); Mean Corpuscular Volume 84 fL (80-100); Monocytes # (Auto) 0.4 Thou/mm3 (0.0-0.8); Monocytes % (Auto) 5 % (0-12); Neutrophils # (Auto) 5.7 Thou/mm3 (1.8-7.7); Neutrophils % (Auto) 71 % (37-80); Nucleated Red Blood Cell # 0.00 Thou/mm3 (0.00-0.00); Nucleated Red Blood Cell % 0 /100 WBC (0); Platelet Count 121 Thou/mm3 (140-440); RDW Standard Deviation 47.0 fL (36.4-46.3); Red Blood Count 2.50 Miln/mm3 (4.00-5.20); White Blood Count 8.0 Thou/mm3 (3.6-11.0)
[2024-11-03 06:06] LABS: Hemoglobin 6.8 g/dL (12.0-16.0)
[2024-11-03] MEDS: FERROUS SULF 325 MG TABLET PO (08:57)
[2024-11-03 16:20] LABS: Hematocrit 27.7 % (36.0-46.0); Hemoglobin 9.2 g/dL (12.0-16.0)
--- NOTE | 2024-11-03 16:33 | ESPR_ITS ---
Documentation for date of: 11/03/24 CLOTH EXAMINER Subjective Subjective Interval history: Patient doing well this morning. Pain is adequately controlled on the current regimen. No incisional complaints, no chest pain, shortness of breath, breathing difficulties. Ambulating, tolerating p.o., passing flatus and voiding without difficulty. Received 2 additional units of packed RBCs today. Exam Vital Signs Temp Pulse Resp BP Pulse Ox O2 Del Method O2 Flow Rate 98.2 F 90 20 114/78 97 Room Air 1 11/03/24 13:07 11/03/24 13:07 11/03/24 13:07 11/03/24 13:07 11/03/24 13:07 11/03/24 12:00 11/02/24 07:37 Constitutional Constitutional: no acute distress Routine HEENT Exam Head: Present normocephalic and atraumatic Eye: Present EOMI and PERRL ENT: Present mucous membranes moist Routine Neck Exam Neck: Present supple and trachea midline Routine Respiratory Exam Respiratory: Present chest non-tender, lungs clear, normal breath sounds and no resp distress Routine Cardiovascular Exam Cardiovascular: Present RRR Routine Abdominal Exam Abdominal: Present soft and normoactive bowel sounds Routine Extremities Exam Extremities: Present full ROM Routine Skin Exam Skin: Present intact and dry Routine Neurological Exam Neurological: Present alert, oriented X3 and CN II-XII intact Routine Psychiatric Exam Psychiatric: Present normal affect and normal thought process Urinary Catheter Management Cath placed during this visit: no CLOTH EXAMINER - PN: Obj Data Labs 11/03/24 04:45 11/02/24 04:56 Labs: Laboratory Results - last 24 hr 11/01/24 11/03/24 09:28 04:45 WBC 8.0 RBC 2.50 L Hgb 6.8 L* D Hct 21.0 L* MCV 84 MCH 27.2 MCHC 32.4 RDW Std Deviation 47.0 H Plt Count 121 L Neut % (Auto) 71 Lymph % (Auto) 23 [place] % (Auto) 5 Eos % (Auto) 1 Baso % (Auto) 1 Neut # (Auto) 5.7 Lymph # (Auto) 1.8 [place] # (Auto) 0.4 Eos # (Auto) 0.1 Baso # (Auto) 0.1 Immature Gran # (Auto) 0.02 H Absolute Nucleated RBC 0.00 Immature Gran % 0 Nucleated RBC % 0 Blood Type O Positive Antibody Screen NEGATIVE Crossmatch See Detail Blood Bank Wristband ID Yes Blood Bank Comment FFP Ready CLOTH EXAMINER - A/P Assessment and plan (1) Intramural leiomyoma of uterus: Status: Acute Assessment and plan: POD#2 1. Continue routine post operative care 2. Transition to PO meds. 3. Encourage to ambulate 4. Anticipate discharge home today. 5. Home care instructions reviewed Postoperative Procedures: Procedures Operation Date: 11/01/24 07:30 Actual Procedure Side Surgeon p Hysterectomy, Abdominal Evan Pablo MD Operation Date: 11/01/24 13:00 Actual Procedure Side Surgeon p Exam under anesthesia and Exploratory Laparotomy, Repair of vaginal laceration Evan Pablo MD Time Spent With Patient Time: Total time spent is greater than 50% in coordination of care (as documented) at patient's floor/unit and/or counseling patient: Time with patient: less than 15 minutes
== END 2024-11-03 17:16 | disposition home or self-care (01) | DRG 519 ==
LOC: S2W1 06:16 → S3NX 16:03
PROVIDERS: Admitting Provider Obstetrics & Gynecology; PCP Family Medicine; Visit Provider Obstetrics & Gynecology
PROC: 0UT90ZZ Resection of Uterus, Open Approach (ICD-10-PCS; principal; 2024-11-01 07:30)
DX: D25.1 Intramural leiomyoma of uterus (principal); N94.6 Dysmenorrhea, unspecified; N99.821 Postprocedural hemorrhage of a genitourinary system organ or structure following other procedure
CPT/HCPCS: 36415; 80048; 80053; 84703; 85014; 85018; 85025; 86850; 86900; 86901; 86923; 86927; A4217; A4649; J0131; J0461; J0690; J1100; J1885; J2250; J2371; J2543; J2550; J2704; J2765; J3010; J3490; J7030; P9016; P9060; A9270

== ENCOUNTER 2024-11-09 10:43 | Outpatient (AMB) | payer MEDICAID, SELFPAY ==
[2024-11-09 10:58] VITALS: BP 119/76; PULSE 68; RESP 17; TEMP 36.7; O2SAT 96; BMI 40.6
--- NOTE | 2024-11-09 10:58 | GYNCLNT_ITS ---
Vital Signs 11/09/24 10:58 Height 1.52 m Height Method Stated Weight 93.894 kg Weight Measurement Method Standing Scale BMI 40.6 BP 119/76 Blood Pressure Source Automatic Cuff Blood Pressure Location Right Upper Arm Position Sitting Respiration 17 Pulse 68 Pulse Source Monitor Temp 98.0 F Temp Source Temporal Artery Scan Pulse Oximetry (%) 96 Oxygen Delivery Method Room Air Allergies/Home Meds Allergies & Medications Allergies codeine Allergy (Severe, Verified 12/31/24 13:04) Hives ibuprofen Allergy (Severe, Verified 12/31/24 13:04) Hives sertraline (From Zoloft) Allergy (Severe, Verified 12/31/24 13:04) Hives topiramate Allergy (Severe, Verified 12/31/24 13:04) HIVE ondansetron (From Zofran) Allergy (Intermediate, Verified 12/31/24 13:04) Rash trazodone Allergy (Intermediate, Verified 12/31/24 13:04) Hives Medication Reconciliation Hydrocodone/Acetaminophen (NORCO 10/325) 1 tab PO Q4-6HRPRN PRN PAIN #0 tabs 03/14/13 [History Confirmed 12/31/24] cyclobenzaprine 5 mg tablet 5 mg PO HS PRN pain 10/29/24 [History Confirmed 12/31/24] ferrous sulfate 325 mg (65 mg iron) tablet,delayed release 325 mg PO DAILY 10/29/24 [History Confirmed 12/31/24] levothyroxine 88 mcg capsule 88 mcg PO QDAY 10/29/24 [History Confirmed 12/31/24] Intake Visit Data Collection New Patient or Established: Established Patient (seen at [facility] within 3 years) Reason for Visit:: POST OP FOLLOW UP Seen by Clinical Staff ONLY (RN/MA): No Manager Air Required: No Do You Feel Safe at Home: Yes Authorities Contacted: N/A PCP or OBGYN visit in last 3 months: No Date of Last PCP or OBGYN visit: 11/03/24 Hx Now: No Pain Present Currently: No Pain Scale Used: Perea-Kirby/Numerical Pain scale:: 0 Smoking Status Smoking Status: Never smoker 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 history Mosquito Sprayer History Menstrual regularity: regular Flow: heavy Monthly: Yes How many days does period last: 7 Age at menarche: 14 Menopausal: Yes Currently sexually active: Yes DIRECTOR OF PARTNERSHIPS: Past Medical History Past Medical History: No Hx Neurological Disorders, Yes Hx Hypothyroidism, No Hx Cardiac Disorders, No Hx Cancer, Yes Hx Blood Disorders, Yes Hx Anemia, Yes Hx Gastrointestinal Disorders, No Hx Renal Disease, No Hx Diabetes Mellitus Type 1, No Hx Diabetes Mellitus Type 2 and Yes Hx Tubal Ligation Questionnaires Covid-19 Vaccine Questionnaire Has patient been vacinated for Covid-19 Have you been vacinated for Covid-19: No PHQ-9 PHQ-2 Over the last 2 weeks, how often have you been bothered by any of the following problems? 1. Little interest or pleasure in doing things: not at all 2. Feeling down, depressed, or hopeless: not at all Total score: 0 PHQ-9 3. Trouble falling or staying asleep, or sleeping too much: Not at all 4. Feeling tired or having little energy: Not at all 5. Poor appetite or overeating: Not at all 6. Feeling bad about yourself - or that you are a failure or have let yourself or your family down: Not at all 7. Trouble concentrating on things, such as reading the newspaper or watching television: Not at all 8. Moving or speaking so slowly that other people could have noticed? - Or the opposite - being so fidgety or restless that you have been moving around a lot more than usual: not at all 9. Thoughts that you would be better off or of hurting yourself in some way: Not at all Total score: 0 If you checked off any problems, how difficult have these problems made it for you to do your work, take care of things at home, or get along with other people?: not difficult at all Source: Developed by Drs. Michael Ozuna, Shannan Wong, Filiberto Dawson and colleagues, with an educational paige from [employer]. Depression screen completed yes Social History Living Situation History Marital Status: Unknown Lives With: Family Housing: House Tobacco History Smoking Status: Never smoker Second Hand Smoke Exposure: No Alcohol History Alcohol Intake: Current Alcohol Intake Frequency: holidays/special occasions only Domestic Abuse History Do You Feel Safe at Home: Yes History of Present Illness HPI Narrative Sonal Mata, a female patient, presents for follow-up status post total abdominal hysterectomy performed on November 01, 2024. The patient reports feeling better overall since the surgery. Sonal's incision site is healing well, with the patient noting no specific complaints related to the surgical site. She mentions feeling stronger and experiencing an improvement in her overall condition. The patient also reports a history of anemia, which is expected to improve following the hysterectomy. Regarding her recovery, Sonal has not yet resumed driving but feels capable of doing so as of today. She expresses a desire to return to work, with her workplace scheduled to reopen on November 13. The patient is planning a trip to [place] next Tuesday, where she will be attending a game. She confirms that she will not be driving during this trip but will be a passenger. Sonal inquires about work restrictions and limitations, indicating her readiness to resume normal activities. She specifically asks for a work note, suggesting a [id number] date of November 26, which is earlier than the typical one-month recovery period. ROS: Negative except as stated above, limited to DIRECTOR OF PARTNERSHIPS and pertinent complaints. Review of Systems Review of Systems Systems Reviewed: All systems reviewed, normal except as documented Exam Narrative Physical exam: Abdominal: Incision site examined. Skin is closing up. Incision looks beautiful and everything is good. General General Appearance: alert, in no apparent distress and healthy appearing Head Head exam: atraumatic Neck Neck exam: Present normal inspection and trachea midline Chest Chest inspection: Present normal inspection and symmetric chest wall rise External exam: Present normal external exam; Absent tenderness Neuro Neurological exam: Present oriented X3 Psych Psychiatric exam: Present normal affect and normal mood Assessment & Plan Diagnosis / Problem List (1) Other acute postprocedural pain: Status: Acute (2) Intramural leiomyoma of uterus: Status: Acute (3) Encounter for surgical aftercare following surgery on the genitourinary system: Status: Acute Plan Status post total abdominal hysterectomy: - Patient is 8 days post-operative from total abdominal hysterectomy performed November 01, 2024. - Pathology report shows no evidence of malignancy. - Incision site healing well with skin closure progressing. - Patient reports feeling better and stronger. - Pre-existing anemia expected to improve following hysterectomy. Plan: - Continue wound care: keep incision site dry. - Gradually increase activity level: ? May drive for less than 20 minutes at a time, slowly increasing duration ? Avoid carrying luggage and excessive walking during upcoming trip to [facility] ? Carry water and avoid overexertion during planned game attendance - Return to work clearance: ? Provide work note for absence until December 03, 2024 ? Schedule follow-up appointment in 2 weeks for potential early work clearance - Follow-up appointment in 2 weeks for reassessment and potential full activity clearance.
== END 2024-11-09 11:20 | disposition home or self-care (01) ==
LOC: HODSOBC 10:43
PROVIDERS: Supervising Provider Obstetrics & Gynecology; Visit Provider Obstetrics & Gynecology
DX: Z48.816 Encounter for surgical aftercare following surgery on the genitourinary system (principal); G89.18 Other acute postprocedural pain; Z90.710 Acquired absence of both cervix and uterus; Z88.5 Allergy status to narcotic agent; Z88.6 Allergy status to analgesic agent; Z88.8 Allergy status to other drugs, medicaments and biological substances
CPT/HCPCS: 99213; G0463

== ENCOUNTER 2024-11-21 11:12 | Outpatient (AMB) | payer MEDICAID, SELFPAY ==
[2024-11-21 11:34] VITALS: BP 132/83; PULSE 74; RESP 16; TEMP 36.8; O2SAT 96; BMI 41.3
--- NOTE | 2024-11-21 11:34 | GYNCLNT_ITS ---
Vital Signs 11/21/24 11:34 Height 1.52 m Height Method Stated Weight 95.481 kg Weight Measurement Method Standing Scale BMI 41.3 BP 132/83 H Blood Pressure Source Automatic Cuff Blood Pressure Location Left Upper Arm Position Sitting Respiration 16 Pulse 74 Pulse Source Monitor Temp 98.2 F Temp Source Oral Pulse Oximetry (%) 96 Oxygen Delivery Method Room Air Allergies/Home Meds Allergies & Medications Allergies codeine Allergy (Severe, Verified 11/21/24 11:35) Hives ibuprofen Allergy (Severe, Verified 11/21/24 11:35) Hives sertraline (From Zoloft) Allergy (Severe, Verified 11/21/24 11:35) Hives topiramate Allergy (Severe, Verified 11/21/24 11:35) HIVE ondansetron (From Zofran) Allergy (Intermediate, Verified 11/21/24 11:35) Rash trazodone Allergy (Intermediate, Verified 11/21/24 11:35) Hives Medication Reconciliation Hydrocodone/Acetaminophen (NORCO 10/325) 1 tab PO Q4-6HRPRN PRN PAIN #0 tabs 03/14/13 [History Confirmed 11/21/24] cyclobenzaprine 5 mg tablet 5 mg PO HS PRN pain 10/29/24 [History Confirmed 11/21/24] ferrous sulfate 325 mg (65 mg iron) tablet,delayed release 325 mg PO DAILY 10/29/24 [History Confirmed 11/21/24] levothyroxine 88 mcg capsule 88 mcg PO QDAY 10/29/24 [History Confirmed 11/21/24] docusate sodium 100 mg capsule 100 mg PO QDAY 30 days #30 caps 11/02/24 [Rx Confirmed 11/21/24] Intake Visit Data Collection New Patient or Established: Established Patient (seen at [facility] within 3 years) Reason for Visit:: POST OP FOLLOW UP Seen by Clinical Staff ONLY (RN/MA): No Supervising Nurse Required: No Do You Feel Safe at Home: Yes Authorities Contacted: N/A PCP or OBGYN visit in last 3 months: Yes Hx Now: No Are you currently on any form of Control: No Pain Present Currently: Yes Pain Scale Used: Perea-Kirby/Numerical Pain scale:: 4 Smoking Status Smoking Status: Never smoker Inspector Floor history Inspector Floor History Menstrual regularity: irregular Flow: heavy Monthly: No How many days does period last: 5 Age at menarche: 13 Menopausal: Yes Currently sexually active: No If not currently sexually active, have you ever been sexually active: Yes 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 1. Little interest or pleasure in doing things: not at all 2. Feeling down, depressed, or hopeless: not at all Total score: 0 PHQ-9 3. Trouble falling or staying asleep, or sleeping too much: Not at all 4. Feeling tired or having little energy: Not at all 5. Poor appetite or overeating: Not at all 6. Feeling bad about yourself - or that you are a failure or have let yourself or your family down: Not at all 7. Trouble concentrating on things, such as reading the newspaper or watching television: Not at all 8. Moving or speaking so slowly that other people could have noticed? - Or the opposite - being so fidgety or restless that you have been moving around a lot more than usual: not at all 9. Thoughts that you would be better off or of hurting yourself in some way: Not at all Total score: 0 Source: Developed by Drs. Michael Ozuna, Shannan Wong, Filiberto Dawson and colleagues, with an educational paige from [employer]. Depression screen completed yes Social History Living Situation History Lives With: Family Housing: House Tobacco History Smoking Status: Never smoker Second Hand Smoke Exposure: No Alcohol History Alcohol Intake: Current Alcohol Intake Frequency: holidays/special occasions only Domestic Abuse History Do You Feel Safe at Home: Yes History of Present Illness HPI Narrative Sonal Mata presents for a postoperative visit following an abdominal hysterectomy performed on November 01, 2024. This is her second follow-up visit, with the first occurring one week after surgery when her dressing was removed. The patient reports she has been becoming more active since her surgery. She recently went on a trip to [facility], which she states went well overall, though she experienced some soreness. She denies any significant complications or concerns. The patient is eager to return to work and has requested clearance to do so. 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 The patient's recovery appears to be progressing well, with no mention of ongoing pain, bleeding, or other postoperative complications. She has been following postoperative instructions, including the recommendation for at least 4 weeks of recovery before returning to work. ROS: Musculoskeletal: Positive for soreness. Exam General General Appearance: alert, in no apparent distress and healthy appearing Head Head exam: atraumatic Neck Neck exam: Present normal inspection and trachea midline Chest Chest inspection: Present normal inspection and symmetric chest wall rise External exam: Present normal external exam; Absent tenderness Neuro Neurological exam: Present oriented X3 Psych Psychiatric exam: Present normal affect and normal mood Office Procedures OB Clinic LOC & Office Proc's Nursing/Assessment Patient Status: Established Patient OB Clinic Nursing Assessment: Medication Reconciliation, Update PMH in EMR and Vital Signs OB Clinic Coordination of Care: Complex Care and Chronic Disease 1-5, Consent,records obtained, informed consent, Education Simp Pt/Fam, Lab and Imaging orders, Results/Orders obtained and Staff clarify orders Established Patient Charge Established Patient Point Assignment: 105 Established Patient Point Charge: EP Level 3 (80-115) Assessment & Plan Diagnosis / Problem List (1) Other acute postprocedural pain: Status: Acute (2) Intramural leiomyoma of uterus: Status: Acute Plan Status post abdominal hysterectomy: - Patient is 3 weeks post abdominal hysterectomy performed on November 01, 2024. - Complicated by postoperative bleeding requiring return to surgery. - Reports doing well overall, becoming more active, and recently traveled to [place]. - Experienced some soreness during trip but otherwise tolerated it well. - Requesting to return to work earlier than initially recommended. Plan: - Defer return to work until December 04, 2024 (day after Labor Day) due to complicated postoperative course and nature of patient's work duties. - Schedule follow-up appointment for next week (Tuesday or Tuesday) for internal examination and reassessment. - If examination is satisfactory, provide work clearance letter for December 04, 2024 return. - Continue to monitor for signs of bleeding or infection.
== END 2024-11-21 11:42 | disposition home or self-care (01) ==
LOC: HODSOBC 11:12
PROVIDERS: Supervising Provider Obstetrics & Gynecology; Visit Provider Obstetrics & Gynecology
DX: N99.89 Other postprocedural complications and disorders of genitourinary system (principal); G89.18 Other acute postprocedural pain; D25.1 Intramural leiomyoma of uterus; Z90.710 Acquired absence of both cervix and uterus; Z88.5 Allergy status to narcotic agent; Z88.6 Allergy status to analgesic agent; Z88.8 Allergy status to other drugs, medicaments and biological substances; Y83.6 Removal of other organ (partial) (total) as the cause of abnormal reaction of the patient, or of later complication, without mention of misadventure at the time of the procedure
CPT/HCPCS: 99213; G0463

== ENCOUNTER 2024-11-28 10:09 | Outpatient (AMB) | payer MEDICAID, SELFPAY ==
[2024-11-28 10:21] VITALS: BP 123/78; PULSE 75; RESP 16; TEMP 36.4; O2SAT 97; BMI 40.8
--- NOTE | 2024-11-28 10:21 | GYNCLNT_ITS ---
Vital Signs 11/28/24 10:21 Height 1.52 m Height Method Measured Weight 94.347 kg Weight Measurement Method Standing Scale BMI 40.8 BP 123/78 Blood Pressure Source Automatic Cuff Blood Pressure Location Left Upper Arm Position Sitting Respiration 16 Pulse 75 Pulse Source Monitor Temp 97.6 F Temp Source Oral Pulse Oximetry (%) 97 Oxygen Delivery Method Room Air Allergies/Home Meds Allergies & Medications Allergies codeine Allergy (Severe, Verified 11/28/24 10:22) Hives ibuprofen Allergy (Severe, Verified 11/28/24 10:22) Hives sertraline (From Zoloft) Allergy (Severe, Verified 11/28/24 10:22) Hives topiramate Allergy (Severe, Verified 11/28/24 10:22) HIVE ondansetron (From Zofran) Allergy (Intermediate, Verified 11/28/24 10:22) Rash trazodone Allergy (Intermediate, Verified 11/28/24 10:22) Hives Medication Reconciliation Hydrocodone/Acetaminophen (NORCO 10/325) 1 tab PO Q4-6HRPRN PRN PAIN #0 tabs 03/14/13 [History Confirmed 11/28/24] cyclobenzaprine 5 mg tablet 5 mg PO HS PRN pain 10/29/24 [History Confirmed 11/28/24] ferrous sulfate 325 mg (65 mg iron) tablet,delayed release 325 mg PO DAILY 10/29/24 [History Confirmed 11/28/24] levothyroxine 88 mcg capsule 88 mcg PO QDAY 10/29/24 [History Confirmed 11/28/24] docusate sodium 100 mg capsule 100 mg PO QDAY 30 days #30 caps 11/02/24 [Rx Confirmed 11/28/24] Intake Visit Data Collection New Patient or Established: Established Patient (seen at [facility] within 3 years) Reason for Visit:: WORK CLEARANCE Seen by Clinical Staff ONLY (RN/MA): No Animation Camera Operator Required: No Do You Feel Safe at Home: Yes Authorities Contacted: N/A PCP or OBGYN visit in last 3 months: Yes Hx Now: No Are you currently on any form of Control: No Pain Present Currently: No Pain Scale Used: Perea-Kirby/Numerical Pain scale:: 0 Smoking Status Smoking Status: Never smoker Anesthesia Associate history Anesthesia Associate History Menopausal: Yes If menopausal, at what age did it occur: 48 Currently sexually active: No If not currently sexually active, have you ever been sexually active: Yes 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 1. Little interest or pleasure in doing things: not at all 2. Feeling down, depressed, or hopeless: not at all Total score: 0 PHQ-9 3. Trouble falling or staying asleep, or sleeping too much: Not at all 4. Feeling tired or having little energy: Not at all 5. Poor appetite or overeating: Not at all 6. Feeling bad about yourself - or that you are a failure or have let yourself or your family down: Not at all 7. Trouble concentrating on things, such as reading the newspaper or watching television: Not at all 8. Moving or speaking so slowly that other people could have noticed? - Or the opposite - being so fidgety or restless that you have been moving around a lot more than usual: not at all 9. Thoughts that you would be better off or of hurting yourself in some way: Not at all Total score: 0 Source: Developed by Drs. Michael Ozuna, Shannan Wong, Filiberto Dawson and colleagues, with an educational paige from [employer]. Depression screen completed yes Social History Living Situation History Lives With: Family Housing: House Tobacco History Smoking Status: Never smoker Second Hand Smoke Exposure: No Alcohol History Alcohol Intake: Current Alcohol Intake Frequency: holidays/special occasions only Domestic Abuse History Do You Feel Safe at Home: Yes History of Present Illness HPI Narrative Sonal Mata presents for a postoperative visit following a total abdominal hysterectomy performed on November 01, 2024. 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 The patient denies any specific complaints or concerns at this time. She expresses a desire to resume her professional duties, indicating a positive recovery trajectory. Sonal has been adhering to postoperative care instructions and has not reported any complications or unexpected symptoms since her surgery. In terms of functional status, Sonal appears to be progressing well enough to consider returning to her job responsibilities. However, she has been instructed to take precautions, specifically to sit down and rest if she experiences any lightheadedness while at work. 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 ROS: General: Negative for complaints. Exam General General Appearance: alert, in no apparent distress and healthy appearing Head Head exam: atraumatic Neck Neck exam: Present normal inspection and trachea midline Chest Chest inspection: Present normal inspection and symmetric chest wall rise External exam: Present normal external exam; Absent tenderness Neuro Neurological exam: Present oriented X3 Psych Psychiatric exam: Present normal affect and normal mood Office Procedures OB Clinic LOC & Office Proc's Nursing/Assessment Patient Status: Established Patient OB Clinic Nursing Assessment: Medication Reconciliation, Update PMH in EMR and Vital Signs OB Clinic Coordination of Care: Complex Care and Chronic Disease 1-5, Consent,records obtained, informed consent, Education Simp Pt/Fam, Results/Orders obtained and Staff clarify orders Established Patient Charge Established Patient Point Assignment: 90 Established Patient Point Charge: EP Level 3 (80-115) Assessment & Plan Diagnosis / Problem List (1) Other acute postprocedural pain: Status: Acute (2) Intramural leiomyoma of uterus: Status: Acute Plan Status post total abdominal hysterectomy: - Patient is 27 days post total abdominal hysterectomy performed on 11/01/2024. - Reports doing well with no complaints. 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 Plan: - Clear patient to return to work on December 04, 2024 (day after Labor Day). - Provide strict precautions to sit down and rest if feeling lightheaded. - Schedule follow-up appointment for vaginal exam to assess the cuff at 2 months postoperative.
== END 2024-11-28 10:28 | disposition home or self-care (01) ==
LOC: HODSOBC 10:09
PROVIDERS: Supervising Provider Obstetrics & Gynecology; Visit Provider Obstetrics & Gynecology
DX: G89.18 Other acute postprocedural pain (principal); D25.1 Intramural leiomyoma of uterus; Z90.710 Acquired absence of both cervix and uterus; Z88.5 Allergy status to narcotic agent; Z88.6 Allergy status to analgesic agent; Z88.8 Allergy status to other drugs, medicaments and biological substances
CPT/HCPCS: 99213; G0463

== ENCOUNTER 2024-12-31 12:55 | Outpatient (AMB) | payer MEDICAID, SELFPAY ==
[2024-12-31 13:03] VITALS: BP 136/99; PULSE 80; RESP 16; TEMP 36.2; O2SAT 98; BMI 40.2
--- NOTE | 2024-12-31 13:03 | AMB.GYNCLNOT ---
Vital Signs 12/31/24 13:03 Height 1.52 m Height Method Stated Weight 92.986 kg Weight Measurement Method Standing Scale BMI 40.2 BP 136/99 H Blood Pressure Source Automatic Cuff Blood Pressure Location Left Upper Arm Position Sitting Respiration 16 Pulse 80 Pulse Source Monitor Temp 97.2 F Temp Source Oral Pulse Oximetry (%) 98 Oxygen Delivery Method Room Air Allergies/Home Meds Allergies & Medications Allergies codeine Allergy (Severe, Verified 12/31/24 13:04) Hives ibuprofen Allergy (Severe, Verified 12/31/24 13:04) Hives sertraline (From Zoloft) Allergy (Severe, Verified 12/31/24 13:04) Hives topiramate Allergy (Severe, Verified 12/31/24 13:04) HIVE ondansetron (From Zofran) Allergy (Intermediate, Verified 12/31/24 13:04) Rash trazodone Allergy (Intermediate, Verified 12/31/24 13:04) Hives Medication Reconciliation Hydrocodone/Acetaminophen (NORCO 10/325) 1 tab PO Q4-6HRPRN PRN PAIN #0 tabs 03/14/13 [History Confirmed 12/31/24] cyclobenzaprine 5 mg tablet 5 mg PO HS PRN pain 10/29/24 [History Confirmed 12/31/24] ferrous sulfate 325 mg (65 mg iron) tablet,delayed release 325 mg PO DAILY 10/29/24 [History Confirmed 12/31/24] levothyroxine 88 mcg capsule 88 mcg PO QDAY 10/29/24 [History Confirmed 12/31/24] Intake Visit Data Collection New Patient or Established: Established Patient (seen at [facility] within 3 years) Reason for Visit:: FOLLOW UP Seen by Clinical Staff ONLY (RN/MA): No Child Development Consultant Required: No Do You Feel Safe at Home: Yes Authorities Contacted: N/A PCP or OBGYN visit in last 3 months: Yes Date of Last PCP or OBGYN visit: 11/28/24 Hx Now: Yes Are you currently on any form of Control: No Pain Present Currently: No Pain Scale Used: Perea-Kirby/Numerical Pain scale:: 0 Smoking Status Smoking Status: Never smoker 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 Menstrual regularity: regular Flow: normal Monthly: No Menopausal: No Currently sexually active: No If not currently sexually active, have you ever been sexually active: No 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 1. Little interest or pleasure in doing things: not at all 2. Feeling down, depressed, or hopeless: not at all Total score: 0 PHQ-9 3. Trouble falling or staying asleep, or sleeping too much: Not at all 4. Feeling tired or having little energy: Not at all 5. Poor appetite or overeating: Not at all 6. Feeling bad about yourself - or that you are a failure or have let yourself or your family down: Not at all 7. Trouble concentrating on things, such as reading the newspaper or watching television: Not at all 8. Moving or speaking so slowly that other people could have noticed? - Or the opposite - being so fidgety or restless that you have been moving around a lot more than usual: not at all 9. Thoughts that you would be better off or of hurting yourself in some way: Not at all Total score: 0 If you checked off any problems, how difficult have these problems made it for you to do your work, take care of things at home, or get along with other people?: not difficult at all Source: Developed by Drs. Michael Ozuna, Shannan Wong, Filiberto Dawson and colleagues, with an educational paige from [employer]. Depression screen completed yes Social History Living Situation History Lives With: Family Housing: House Tobacco History Smoking Status: Never smoker Second Hand Smoke Exposure: No Alcohol History Alcohol Intake: Current Alcohol Intake Frequency: holidays/special occasions only Domestic Abuse History Do You Feel Safe at Home: Yes History of Present Illness HPI Narrative Sonal Mata is a 49-year-old female who is 2 months status post total abdominal hysterectomy performed on October 31, presenting for routine post-operative follow-up. She reports experiencing nerve pain on both sides and intermittent sharp pain in the middle of her incision area that occurs suddenly when walking or even when sitting down. She describes this as cramping and pulling sensations that are bothersome. The patient also reports experiencing pressure when urinating since her surgery. She denies any urinary leakage or UTI symptoms, noting that she went to her doctor who checked for infection. She has been drinking adequate amounts of water. 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 She denies any other post-operative complications. She has a history of total abdominal hysterectomy on October 31, 2024. 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 ROS: Genitourinary: Positive for pressure sensation when urinating, negative for urinary leakage and UTI symptoms. Musculoskeletal: Positive for bilateral flank pain and intermittent central abdominal pain. Exam General General Appearance: alert, in no apparent distress and healthy appearing Head Head exam: atraumatic Neck Neck exam: Present normal inspection and trachea midline Chest Chest inspection: Present normal inspection and symmetric chest wall rise External exam: Present normal external exam; Absent tenderness Neuro Neurological exam: Present oriented X3 Psych Psychiatric exam: Present normal affect and normal mood Office Procedures OBC Clinic LOC & Office Proc's Nursing/Assessment Patient Status: Established Patient OB Clinic Nursing Assessment: Medication Reconciliation, Update PMH in EMR and Vital Signs OB Clinic Coordination of Care: Education Complex Pt/Fam, Consent,records obtained, informed consent, Lab and Imaging orders, Results/Orders obtained and Staff clarify orders Established Patient Charge Established Patient Point Assignment: 85 Established Patient Point Charge: EP Level 3 (80-115) Assessment & Plan Diagnosis / Problem List (1) Intramural leiomyoma of uterus: Status: Acute (2) Other acute postprocedural pain: Status: Acute Plan Post-operative abdominal pain: - Bilateral nerve pain and central abdominal pain with walking and sitting. - Consistent with fascial layer tension from dissolving sutures after hysterectomy. - Tough suture material chosen to prevent fascial dehiscence, takes 90 days to dissolve. Plan: - Reassured patient fascial pain will resolve by 90 days post-operatively. - Continue wearing support belt when standing for more than 2 hours or lifting at work. 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 - Return in one month if discomforts persist for ultrasound or CT scan evaluation. Post-hysterectomy bladder dysfunction: - Urinary pressure without leakage after total abdominal hysterectomy. - Expected after hysterectomy as bladder requires retraining after detachment from uterus. Plan: - Perform Kegel exercises: stop urine stream longterm through voiding, squeeze hard, then release. - Perform pelvic floor exercises: squeeze pelvic muscles as if holding something, then release. - Complete 10-15 repetitions of exercises both morning and evening. - Continue adequate water intake. - Return in one month if symptoms persist. Post-operative activity restrictions: - Patient is 2 months post total abdominal hysterectomy and returned to work. - Healing progressing appropriately for timeline. Plan: - No restrictions on sexual activity. - Patient counseled that first episode of sexual activity may cause light spotting from stretching, which is normal. - Follow-up scheduled in one month.
== END 2024-12-31 13:25 | disposition home or self-care (01) ==
LOC: HODSOBC 12:55
PROVIDERS: Supervising Provider Obstetrics & Gynecology; Visit Provider Obstetrics & Gynecology
DX: Z48.816 Encounter for surgical aftercare following surgery on the genitourinary system (principal); G89.18 Other acute postprocedural pain; D25.1 Intramural leiomyoma of uterus; Z90.710 Acquired absence of both cervix and uterus; Z88.5 Allergy status to narcotic agent; Z88.6 Allergy status to analgesic agent; Z88.8 Allergy status to other drugs, medicaments and biological substances
CPT/HCPCS: 99213; G0463